=== PATIENT | female | born 1975 | race Caucasian/White ===

== ENCOUNTER 2025-02-06 10:50 | Day surgery (SDC) | payer OTHER ==
[2025-02-05 11:30] VITALS: BP 127/81
[~2025-02-06] VITALS: Ht 157.5 cm; Wt 48.1 kg
[2025-02-06] MEDS ORDERED: CIPROFLOXACIN IN 5 % DEXTROSE 400 MG/200 ML PIGGYBAG IV ONE (11:14)
== END 2025-02-06 18:25 | disposition home or self-care (01) ==
LOC: CIR.AMB 10:50
PROVIDERS: ATTEND Surgery
DX: C50.412 Malignant neoplasm of upper-outer quadrant of left female breast (principal); R59.0 Localized enlarged lymph nodes